=== PATIENT | female | born 1970 | race Caucasian/White ===

== ENCOUNTER 2024-05-30 08:44 | Outpatient (RCR) | payer MEDICAID, SELFPAY | END 2024-06-16 23:59 | disposition home or self-care (01) | LOC: SCTC 08:44 | PROVIDERS: PCP Family Medicine; Referring Provider Nurse Practitioner Family; Visit Provider Nurse Practitioner Family | DX: Z09 Encounter for follow-up examination after completed treatment for conditions other than malignant neoplasm (principal); Z86.2 Personal history of diseases of the blood and blood-forming organs and certain disorders involving the immune mechanism | CPT/HCPCS: 99212; G0463 ==

== ENCOUNTER 2024-07-31 09:35 | Outpatient (RCR) | payer MEDICAID, SELFPAY | END 2024-08-17 23:59 | disposition home or self-care (01) | LOC: SCTC 09:35 | PROVIDERS: PCP Family Medicine; Referring Provider Family Medicine; Visit Provider Nurse Practitioner Family | DX: Z09 Encounter for follow-up examination after completed treatment for conditions other than malignant neoplasm (principal); Z86.2 Personal history of diseases of the blood and blood-forming organs and certain disorders involving the immune mechanism | CPT/HCPCS: 99212; G0463 ==

== ENCOUNTER 2024-11-20 11:01 | Outpatient (RCR) | payer MEDICAID, SELFPAY | END 2024-12-15 23:59 | disposition home or self-care (01) | LOC: SCTC 11:01 | PROVIDERS: PCP Physician Assistant Medical; Referring Provider Family Medicine; Visit Provider Nurse Practitioner Family | DX: D50.9 Iron deficiency anemia, unspecified (principal); Z86.2 Personal history of diseases of the blood and blood-forming organs and certain disorders involving the immune mechanism | CPT/HCPCS: 99212; G0463 ==

== ENCOUNTER 2025-04-16 14:30 | Outpatient (RCR) | payer MEDICAID, SELFPAY | END 2025-04-16 23:59 | disposition home or self-care (01) | LOC: SCTC 14:30 | PROVIDERS: PCP Physician Assistant Medical; Referring Provider Physician Assistant Medical; Visit Provider Nurse Practitioner Family | DX: Z09 Encounter for follow-up examination after completed treatment for conditions other than malignant neoplasm (principal); Z86.2 Personal history of diseases of the blood and blood-forming organs and certain disorders involving the immune mechanism | CPT/HCPCS: 99212; G0463 ==

== ENCOUNTER 2025-07-03 14:22 | Outpatient (RCR) | payer MEDICAID, SELFPAY | END 2025-07-17 23:59 | disposition home or self-care (01) | LOC: SCTC 14:22 | PROVIDERS: PCP Physician Assistant Medical; Referring Provider Physician Assistant Medical; Visit Provider Nurse Practitioner Family | DX: D50.9 Iron deficiency anemia, unspecified (principal) | CPT/HCPCS: 99212; G0463 ==